=== PATIENT | female | born 1980 | race Caucasian/White ===

== ENCOUNTER 2016-12-16 22:44 | Emergency (ER) | payer BC ==
[~2016-12-16] VITALS: Ht 172.7 cm; Wt 60.0 kg
[~2016-12-16 22:44] MED LIST: Z.0.NO CURRENT MEDS
[2016-12-16 22:46] VITALS: BP 138/85; PULSE 111; RESP 18; TEMP 97.8; O2SAT 100
[2016-12-16] MEDS ORDERED: CELE200C PO (23:12)
[2016-12-16] MEDS ORDERED: GABA300C5 PO (23:12)
--- NOTE | 2016-12-16 23:57 | PD ---
HPI Chief Complaint: Syncope/Near-Syncope Time Seen by Provider: 23:56 Travel History International Travel<30 days: No Contact w/Intl Traveler<30days: No Traveled to known affect area: No History of Present Illness HPI 36-year-old female came to the emergency room brought by her boyfriend after she was witnessed to have a syncopal episode about 1 hour prior to coming to the emergency room. Patient says that she was sitting on the porch with her boyfriend and was watching a movie when he noticed that she slumped over and became unresponsive. He tried to lift her and sit her up straight at which point noticed that her arms were shaking in her legs were stiff. He called her name few times but could not get her to respond. As per the patient she does not remember the passing out episode but she does remember hearing him call her name. Patient says that in her mind she was trying to answer but was unable to. This lasted for less than a minute after which patient started to come around and currently she feels very tired. No history of tongue bite or incontinence. As per the boyfriend it seemed like she was not breathing for about 30-45 seconds but her color remained normal and no diaphoresis. Right now she is awake and answering questions appropriately. Her vital signs were stable. She was feeling fine up until this happened. Patient does say that she smoked a bowl of joint earlier in the evening. She does not drink alcohol and refused to have done any other street drugs. She says that for past 1-2 year she is having nerve issues. She describes them as neuropathy, intense pruritus and tingling of her skin. She has a neurologist in [place] who has been working her up. She has had MRI of her brain about 4 months ago, EMG and few other laboratory testing done but so far everything is within normal limits. She also has history of IBS and her maintenance coordinator as scheduled a colonoscopy for Tuesday. Meanwhile this incident happened and that's why she is in the emergency room. [facility] Past Medical History Narrative Medical List of her past medical, surgical, social and family history is reviewed from the nursing note. Depression: Yes (TAKES MEDS BUT DOESN'T KNOW THE NAME, NO PSYCH OR NO PMD ORDERED PER PT) Diminished Hearing: No Musculoskeletal: Yes (bulging disk and fx sternum) Neurologic: Yes (neuropathy) Psychiatric: Yes (DEPRESSION) Immunizations Current: Yes Tetanus Vaccination: Unknown Influenza Vaccination: No ?: Not LMP: 11/30/2016 Menopausal: No : 1 Para: 1 Dilation and Curettage (D&C): Yes (WHEN HAD MISCARRIAGE BUT WOULDN'T SAY WHEN AND HOW MANY) Past Surgical History Gynecologic Surgery: Yes (LT OVARY REMOVED) Social History Alcohol Use: Yes (rarely) Tobacco Use: Yes Substance Use: Yes (marijaunia) Allergies-Medications (Allergen,Severity, Reaction): Coded Allergies: No Known Allergies (Unverified , 12/16/16) Comments No known drug allergies. Reported Meds & Prescriptions Reported Meds & Active Scripts Active Reported Celebrex (Celecoxib) 200 Mg Cap 200 Mg PO BID Gabapentin 300 Mg Cap 300 Mg PO TID Narrative Medication List of her home medications reviewed from the nursing note. Review of Systems Except as stated in HPI: all other systems reviewed are Neg Physical Exam Narrative GENERAL: Awake, alert, anxious, no obvious distress SKIN: Focused skin assessment warm/dry. HEAD: Atraumatic. Normocephalic. EYES: Pupils equal and round. No scleral icterus. No injection or drainage. ENT: No nasal bleeding or discharge. Dry lips NECK: Trachea midline. No JVD. CARDIOVASCULAR: Regular rate and rhythm. No murmur appreciated. RESPIRATORY: No accessory muscle use. Clear to auscultation. Breath sounds equal bilaterally. GASTROINTESTINAL: Abdomen soft, non-tender, nondistended. Hepatic and splenic margins not palpable. MUSCULOSKELETAL: No obvious deformities. No clubbing. No cyanosis. No edema. NEUROLOGICAL: Awake and alert. No obvious cranial nerve deficits. Motor grossly within normal limits. Normal speech. PSYCHIATRIC: Appropriate mood and affect; insight and judgment normal. Data Data Last Documented VS Vital Signs Date Time Temp Pulse Resp B/P (MAP) Pulse Ox O2 Delivery O2 Flow Rate FiO2 12/17/16 02:36 65 18 105/57 (73) 100 Room Air 12/16/16 22:46 97.8 Orders Orders Electrocardiogram (12/17/16 00:03) Prothrombin Time / Inr (Pt) (12/17/16 00:03) Complete Blood Count With Diff (12/17/16 00:03) Comprehensive Metabolic Panel (12/17/16 00:03) Creatine Kinase (Cpk) (12/17/16 00:03) Drug Screen, Random Urine (12/17/16 00:03) Troponin I (12/17/16 00:03) Urinalysis - C+S If Indicated (12/17/16 00:03) Ct Brain W/O Iv Contrast(Rout) (12/17/16 00:03) Chest, Single Ap (12/17/16 00:03) Ecg Monitoring (12/17/16 00:03) Iv Access Insert/Monitor (12/17/16 00:03) Oximetry (12/17/16 00:03) Sodium Chloride 0.9% Flush (Ns Flush) (12/17/16 00:15) Urine Culture (12/17/16 00:15) Labs Laboratory Tests Test 12/17/16 00:15 White Blood Count 18.1 TH/MM3 Red Blood Count 4.49 MIL/MM3 Hemoglobin 13.6 GM/DL Hematocrit 40.2 % Mean Corpuscular Volume 89.5 FL Mean Corpuscular Hemoglobin 30.2 PG Mean Corpuscular Hemoglobin Concent 33.8 % Red Cell Distribution Width 13.4 % Platelet Count 237 TH/MM3 Mean Platelet Volume 9.4 FL Neutrophils (%) (Auto) 78.2 % Lymphocytes (%) (Auto) 13.1 % Monocytes (%) (Auto) 7.0 % Eosinophils (%) (Auto) 1.3 % Basophils (%) (Auto) 0.4 % Neutrophils # (Auto) 14.2 TH/MM3 Lymphocytes # (Auto) 2.4 TH/MM3 Monocytes # (Auto) 1.3 TH/MM3 Eosinophils # (Auto) 0.2 TH/MM3 Basophils # (Auto) 0.1 TH/MM3 CBC Comment DIFF FINAL Differential Comment Prothrombin Time 11.2 SEC Prothromb Time International Ratio 1.0 RATIO Urine Color YELLOW Urine Turbidity HAZY Urine pH 5.5 Urine Specific [place] 1.016 Urine Protein NEG mg/dL Urine Glucose (UA) NEG mg/dL Urine Ketones NEG mg/dL Urine Occult Blood NEG Urine Nitrite NEG Urine Bilirubin NEG Urine Urobilinogen LESS THAN 2.0 MG/DL Urine Leukocyte Esterase TRACE Urine RBC 3 /hpf Urine WBC 4 /hpf Urine Squamous Epithelial Cells 5 /hpf Urine Bacteria MOD /hpf Urine Mucus FEW /lpf Microscopic Urinalysis Comment CULTURE INDICATED Blood Urea Nitrogen 15 MG/DL Creatinine 0.89 MG/DL Random Glucose 91 MG/DL Total Protein 7.4 GM/DL Albumin 4.1 GM/DL Calcium Level 8.5 MG/DL Alkaline Phosphatase 62 U/L Aspartate Amino Transf (AST/SGOT) 13 U/L Alanine Aminotransferase (ALT/SGPT) 19 U/L Total Bilirubin 0.3 MG/DL Sodium Level 139 MEQ/L Potassium Level 3.8 MEQ/L Chloride Level 103 MEQ/L Carbon Dioxide Level 30.4 MEQ/L Anion Gap 6 MEQ/L Estimat Glomerular Filtration Rate 73 ML/MIN Total Creatine Kinase 121 U/L Troponin I LESS THAN 0.02 NG/ML Urine Opiates Screen NEG Urine Barbiturates Screen NEG Urine Amphetamines Screen NEG Urine Benzodiazepines Screen NEG Urine Cocaine Screen NEG Urine Cannabinoids Screen POS MDM Medical Decision Making Medical Screen Exam Complete: Yes Emergency Medical Condition: Yes Medical Record Reviewed: Yes Differential Diagnosis Seizure, seizure related to marijuana abuse, electrolyte abnormality, psychosomatic disorder Narrative Course 12:22 AM I have ordered blood test and CT scan. Awaiting for the test to be resulted. 2:03 AM blood test results of back. Patient has leukocytosis. However trending her labs back patient has had leukocytosis in the past consistently. In fact her WBC count has been higher than this. Also she has had positive UA but the cultures have been negative. Once again her UA is positive today. I will not start her on any antibiotic given her past history and see what the urine culture shows. If that's positive she'll get a call from us to get treated. I've asked her to be followed up by her neurologist at this point. She has good follow-up. Procedures EKG Prior to Arrival: No Diagnosis Primary Impression: Syncopal episodes Referrals: Primary Care Physician 3 days Additional Instructions: Please follow-up with your neurologist. Give call in the morning to get an appointment. You will require EEG. He should not be driving to a been cleared by a neurologist. Return to the ER if the condition worsens or any other new concerns. He should not be smoking marijuana since it decreases the seizure threshold. Med/Other Pt SpecificInfo: No Change to Meds Disposition: 01 DISCHARGE HOME Condition: Stable Gagan Driscoll MD Dec 16, 2016 23:57
[2016-12-17 00:06] VITALS: RESP 18; O2SAT 99
[2016-12-17] MEDS ORDERED: SODIUM CHLORIDE 0.9% FLUSH 10 ML FLUSH IVF PRN (00:15)
[2016-12-17 00:38] LABS: AUTOMATED NEUTROPHIL # 14.2 TH/MM3 (1.8-7.7); BASOPHIL # 0.1 TH/MM3 (0-0.2); BASOPHIL % 0.4 % (0.0-2.0); EOSINOPHIL # 0.2 TH/MM3 (0-0.4); EOSINOPHIL % 1.3 % (0.0-4.0); HEMATOCRIT 40.2 % (35.0-46.0); HEMO FLAGS DIFF FINAL; LYMPH % 13.1 % (9.0-44.0); LYMPHOCYTE # 2.4 TH/MM3 (1.0-4.8); MEAN CELL VOLUME 89.5 FL (80.0-100.0); MEAN CORPUSCULAR HEMOGLOBIN 30.2 PG (27.0-34.0); MEAN CORPUSCULAR HGB CONC 33.8 % (32.0-36.0); NEUT % 78.2 % (16.0-70.0); PLATELET COUNT 237 TH/MM3 (150-450); RED BLOOD COUNT 4.49 MIL/MM3 (4.00-5.30); RED CELL DISTRIBUTION WIDTH 13.4 % (11.6-17.2); WHITE BLOOD COUNT 18.1 TH/MM3 (4.0-11.0)
[2016-12-17 00:47] LABS: ALT (GPT) 19 U/L (10-53); ANION GAP 6 MEQ/L (5-15); AST (GOT) 13 U/L (15-37); BICARBONATE 30.4 MEQ/L (21.0-32.0); BLOOD UREA NITROGEN 15 MG/DL (7-18); CHLORIDE 103 MEQ/L (98-107); GLOMERULAR FILTRATION RATE 73 ML/MIN (>89); POTASSIUM 3.8 MEQ/L (3.5-5.1); SODIUM (NA) 139 MEQ/L (136-145)
[2016-12-17 00:49] LABS: BACTERIA, URINE MOD /hpf; BLOOD, URINE NEG (NEG); COMMENT (UR) CULTURE INDICATED; CULTURE IF INDICATED CULTURE INDICATED; GLUCOSE,URINE NEG (NEG); KETONE, URINE NEG (NEG); MUCUS URINE FEW /lpf (OCC); NITRITE,URINE NEG (NEG); PH, URINE 5.5 (5.0-8.5); PROTHROMBIN TIME - PATIENT 11.2 SEC (9.8-11.6); SQUAMOUS EPITHELIAL CELL URINE 5 /hpf (0-5); URINE COLOR YELLOW (YELLW/STRAW)
[2016-12-17 00:50] LABS: ALKALINE PHOSPHATASE 62 U/L (45-117); CREATINE KINASE 121 U/L (26-192); TOTAL BILIRUBIN ADULT 0.3 MG/DL (0.2-1.0)
--- NOTE | 2016-12-17 00:51 | RADRPT ---
EXAM DATE/TIME: 12/17/2016 00:30 [facility] COMPARISON: No previous studies available for comparison. INDICATIONS : Cardiovascular. Syncope. MEDICAL HISTORY : Neuropathy SURGICAL HISTORY : None. ENCOUNTER: Initial ACUITY: 1 day PAIN SCORE: 0/10 LOCATION: Bilateral chest FINDINGS: A single view of the chest demonstrates the lungs to be symmetrically aerated without evidence of mas s, infiltrate or effusion. The cardiomediastinal contours are unremarkable. Osseous structures are intact. CONCLUSION: No acute cardiopulmonary process. Tacos Sexton MD on December 17, 2016 at 0:49 Board Certified Radiologist. This report was verified electronically.
--- NOTE | 2016-12-17 01:30 | RADRPT ---
EXAM DATE/TIME: 12/17/2016 00:38 [facility] COMPARISON: No previous studies available for comparison. INDICATIONS : Syncope. RADIATION DOSE: 56.35 CTDIvol (mGy) MEDICAL HISTORY : None SURGICAL HISTORY : None. ENCOUNTER: Initial ACUITY: 1 day PAIN SCALE: 4/10 LOCATION: cranial TECHNIQUE: Multiple contiguous axial images were obtained of the head. Using automated exposure control and adj ustment of the mA and/or kV according to patient size, radiation dose was kept as low as reasonably a chievable to obtain optimal diagnostic quality images. DICOM format image data is available electro nically for review and comparison. FINDINGS: CEREBRUM: The ventricles are normal for age. No evidence of midline shift, mass lesion, hemorrhage or acute in farction. No extra-axial fluid collections are seen. POSTERIOR FOSSA: The cerebellum and brainstem are intact. The 4th ventricle is midline. The cerebellopontine angle i s unremarkable. EXTRACRANIAL: The visualized portion of the orbits is intact. SKULL: The calvaria is intact. No evidence of skull fracture. CONCLUSION: Negative exam. Tacos Sexton MD on December 17, 2016 at 1:28 Board Certified Radiologist. This report was verified electronically.
[2016-12-17 02:36] VITALS: BP 105/57; PULSE 65; RESP 18; O2SAT 100
--- NOTE | 2016-12-17 09:12 | EKG ---
Date Performed: 12/16/2016 Time Performed: 23:30:15 PTAGE: 36 years EKG: Sinus rhythm WITH SHORT CO INTERVAL NONSPECIFIC T-WAVE ABNORMALITY BORDERLINE ECG NO PREVIOUS TRACING DOCTOR: Roberto Muir Interpretating Date/Time 12/17/2016 09:12:12
== END 2016-12-17 02:38 | disposition home or self-care (01) ==
LOC: NEPC 22:44
DX: R55 Syncope and collapse (principal); D72.829 Elevated white blood cell count, unspecified; R94.31 Abnormal electrocardiogram [ECG] [EKG]; G62.9 Polyneuropathy, unspecified; F32.9 Major depressive disorder, single episode, unspecified; K58.9 Irritable bowel syndrome, unspecified; Z72.0 Tobacco use; Z79.899 Other long term (current) drug therapy
CPT/HCPCS: 70450; 71010; 80053; 80307; 81001; 82550; 84484; 85025; 85610; 87077; 87086; 87186; 93005; 99285

== ENCOUNTER → 2017-07-08 | Outpatient (CLI) | payer OTHER ==
[~2017-07-08] MED LIST changes: +CELE200C PO; +CLON1TAB PO; +GABA300C5 PO; -Z.0.NO CURRENT MEDS
== END ==
LOC: CPRE 12:57
PROVIDERS: ATTEND Obstetrics & Gynecology
DX: Z01.812 Encounter for preprocedural laboratory examination (principal); Z01.818 Encounter for other preprocedural examination; R21 Rash and other nonspecific skin eruption; R10.84 Generalized abdominal pain; M79.1 Myalgia; R51 Headache; N92.0 Excessive and frequent menstruation with regular cycle

== ENCOUNTER → 2017-07-11 | Day surgery (SDC) | payer OTHER ==
[~2017-07-11] VITALS: Ht 172.7 cm; Wt 70.7 kg
[~2017-07-11] MED LIST changes: +*MEPERIDINE 25 MG INJ VIAL PERIprocedural Use ONLY ONE; +*morphine SULFATE 10 MG/ML PERIprocedure ONLY ONE; +ACETAMINOPHEN 1000 MG/100 ML 100 ML IV ONE; +CHLORHEXIDINE GLUCONATE 2 % 1 PACK (2 CLOTHS) TOPICAL PRN; +DO NOT ADM ANY ANTICOAGULANT DRUGS PRN; +GLYCOPYRROLATE 1 MG/5 ML SYRINGE IV PUSH ONE; +LACTATED RINGER'S 1000 ML INJ 1,000 ML IV ONE; +LACTATED RINGER'S 1000 ML IV PRN; +LIDOCAINE HCL 1% PF 5 ML SYRINGE OTHER ONE; +LORazepam 2 MG/ML VIAL IV ONE; +LORazepam 2 MG/ML VIAL ONE; +METOPROLOL TARTRATE 25 MG TAB PO PRN; +MIDAZOLAM HCL 2 MG/2 ML VIAL ONE; +MORPHINE SULFATE 4 MG/ML INJ ONE; +POVIDONE IODINE 5% (ANTISEPSIS KIT) 4 APPLICATIONS EACH NARE PRN; +SODIUM CHLORID 0.9% 500 ML IV PRN; +oxyCODONE/ACETAMINOPHEN 5 MG/325 MG TAB ONE
--- NOTE | 2017-07-11 14:22 | RADRPT ---
EXAM DATE/TIME: 07/11/2017 13:51 [facility] COMPARISON: No previous studies available for comparison. INDICATIONS : Possible foreign body; post fallopian tube removal. MEDICAL HISTORY : Unobtainable. SURGICAL HISTORY : Unobtainable. ENCOUNTER: Initial ACUITY: 1 day PAIN SCORE: Non-responsive. LOCATION: Abdomen. FINDINGS: Nonobstructive bowel gas pattern. Osseous structures are intact. A linear metallic radiopaque body ov erlies the left sacrum at the S4 level measuring 9.1 mm. CONCLUSION: Small radiopaque foreign body in the left hemipelvis measuring 9.1 mm. Gianni Pete MD on July 11, 2017 at 14:20 Board Certified Radiologist. This report was verified electronically.
--- NOTE | 2017-07-11 15:16 | RADRPT ---
EXAM DATE/TIME: 07/11/2017 14:49 [facility] COMPARISON: No previous studies available for comparison. INDICATIONS : Post removal of foreign body from fallopian tube removal done in [place]. MEDICAL HISTORY : Unobtainable. SURGICAL HISTORY : Unobtainable. ENCOUNTER: Subsequent ACUITY: 1 day PAIN SCORE: Non-responsive. LOCATION: Left pelvis FINDINGS: 2 spot intraoperative fluoroscopic views of the pelvis demonstrate interval removal of the left-sided 9 mm foreign body. CONCLUSION: Foreign body removal. Gianni Pete MD on July 11, 2017 at 15:13 Board Certified Radiologist. This report was verified electronically.
[2017-07-11 16:10] VITALS: BP 120/78; PULSE 81; RESP 18; TEMP 97.8; O2SAT 100
--- NOTE | 2017-07-11 19:48 | MP ---
cc: Teo Hamilton MD DATE OF OPERATION: 07/11/2017 PREOPERATIVE DIAGNOSES: 1. Abdominal pelvic pain. 2. Muscle pain. 3. Itching. 4. Menorrhagia. POSTOPERATIVE DIAGNOSES: 1. Abdominal pelvic pain. 2. Muscle pain. 3. Itching. 4. Menorrhagia. PROCEDURE: Hysteroscopic exam, dilation and curettage of the uterus, laparoscopic exam with a bilateral salpingectomy, removal of Essure springs. An x-ray to confirm total removal of the springs. ANESTHESIA: General, endotracheal intubation. SURGEON: Teo Hamilton MD FINDINGS: On examination under anesthesia, the vagina was clean. The cervix was clean without lesions. The uterus normal size, shape and consistency and freely mobile. The adnexa were negative for masses. The hysteroscopic exam revealed a normal endometrial cavity. I was unable to see the springs hysteroscopically. The D and C revealed a moderate amount of tissue. There were no polyps or submucous myomas. The laparoscopic exam revealed a normal uterus. The left tube was mostly absent at the distal end. The right tube was normal in length and caliber. The ovaries were normal. The cul-de-sac, anterior and posterior, were normal. The springs were removed completely. A postop pelvic x-ray showed a sliver, which was needed to go back with the C-arm and retrieve that little sliver of metal. COMPLICATIONS: None. COUNTS: Correct. ESTIMATED BLOOD LOSS: 15 mL. FLUIDS: Crystalloids. DISPOSITION: Patient tolerated the procedure well and went to the recovery room in good condition. PROCEDURE IN DETAIL: Patient was taken to the operating room, identified by name band and verbally, given general anesthetic, prepped and draped in the usual sterile manner in the dorsal lithotomy position for a laparoscopic vaginal surgery. The urinary bladder was drained with in and out catheter. The timeout was taken and once agreed upon the procedure, we proceeded with examination under anesthesia with the above findings. The cervix was grasped with a single-tooth tenaculum, a speculum was placed, and the cervix was serially dilated to accept the hysteroscope. The hysteroscope was inserted and we had a little difficult time, but an adequate exam. Could not visualize the ends of the Essure. The hysteroscope was removed and the [place] clamp was placed. A small subumbilical incision was made and with a 5 mm trocar, the pneumoperitoneum was created after the abdomen was entered under direct vision. Inferolateral to the umbilicus on the left and right, 5 mm trocars were placed. There were some adhesions of the small bowel to the anterior abdominal wall that were very thick in the left lower quadrant. We took care to not injure that organ while we put the trocar in. The first order of business was to remove the right fallopian tube. From the fimbriated end along the mesosalpinx, we took that down to approximately 1 cm away from the uterine tubal junction and we removed that portion of the tube. The spring was found and gently removed slowly. The springs uncoiled nicely, and we verified that we got the very end of the Essure device by inspecting the end of the spring carefully. This was repeated on the left-hand side. There was only a small portion of tube left there, and we transected that tube, found the spring and, again, removed it very slowly and carefully. Again, we made sure that we removed spring entirely, and we checked the end for complete removal. At this point, we did lysis of adhesions. This took quite a while. We tried to take down that small bowel from the anterior abdominal wall; however, we were only able to take probably 75% of it down because it was so firmly adhesed. At this point, I left that alone. The attention to the posterior uterus, and we irrigated that area with some fluids and inspected it carefully. At this point, we went down below and repeated the hysteroscopic exam and clearly saw both ostia. Both ostia were free from any springs or foreign bodies. We again inspected the uterine cavity. At this point, we took a sharp curette and curetted the entire endometrium briskly. The [place] polyp forceps were used to remove any other tissue that was left behind. At this point, we took an x-ray and to my surprise, in the left lower quadrant, there was a little sliver of metal there that was quite removed quite a bit higher up than the uterus. She had been taken out of dorsal lithotomy position and was in the supine position. We moved her down on the table, so we could get a C-arm in there and find this little sliver. It was finally found in the little adhesion that was to the anterior abdominal wall in that left lower quadrant. It was in a little portion of tube, which must have escaped up when we took the left tube out. We found the sliver of metal and we repeated the C-arm. Sliver was absent. Then, we also took an x-ray of that little portion of tube and confirmed that that little sliver of metal was there. At this point, all the instruments were removed. The air was released from the abdominal cavity and the incisions were repaired with a 4-0 Monocryl in a subcuticular manner. All the instruments were removed, and she was taken to the recovery room in satisfactory condition. She tolerated the procedure well; however, it took approximately 2 hours to do this procedure, and it required a C-arm and finding that little portion of metal, which made this a very complex case. R. MD GRACIA Albarado/EBONY , 05:54 PM , 07:46 PM
== END | disposition home or self-care (01) ==
LOC: HSDC 09:57
PROVIDERS: ATTEND Obstetrics & Gynecology
DX: N92.0 Excessive and frequent menstruation with regular cycle (principal); R10.2 Pelvic and perineal pain
CPT/HCPCS: 00840; 00952; 58558; 58661; 74018; 76000; 88300; 88305; J0131; J2060; J2175; J2250; J2270; J3010; J7120; 88302